=== PATIENT | male | born 1995 | race Two or more races ===

== ENCOUNTER 2024-08-30 00:53 | Emergency (ER) | payer MEDICAID, SELFPAY ==
[2024-08-30 00:55] VITALS: BMI 32.8
[2024-08-30 01:26] VITALS: BP 141/90; PULSE 84; RESP 18; TEMP 36.7; O2SAT 96
--- NOTE | 2024-08-30 01:33 | XR_ITS ---
Examination: Tibia-Fibula, right , 2 views Technique: Tibia-fibula AP lateral 2 views Date and time of exam: August 30, 2024 0144 hours INDICATIONS: Patient slipped and fell today with large laceration lower leg FINDINGS: Prior anterior cruciate ligament repair No fracture No cortical bone destruction No opaque foreign body IMPRESSION: No fracture No opaque foreign body
--- NOTE | 2024-08-30 01:33 | PD.EDRME ---
Rapid Medical Screening Exam RME Arrival date/time: 08/30/24 00:53 29-year-old male presents emergency department complaining of laceration to right villanueva while getting off of his semitruck. Patient reports is up-to-date with tetanus vaccine. Chief Complaint: Extremity Injury, Lower Time Seen by Provider: 08/30/24 01:05 Vital signs: Vital Signs Temperature 98.1 F 08/30/24 01:26 Pulse Rate 84 08/30/24 01:26 Respiratory Rate 18 08/30/24 01:26 Blood Pressure 141/90 H 08/30/24 01:26 Pulse Oximetry (%) 96 08/30/24 01:26 Oxygen Delivery Method Room Air 08/30/24 01:26 Vital signs reviewed by provider: Yes
[2024-08-30] MEDS: LIDOCAINE HCL 1% 20 ML VIAL INFL (01:41)
[2024-08-30] MEDS: HYDROcodone/APAP 5/325 TABLET 1 TAB PO (02:40)
--- NOTE | 2024-08-30 03:07 | EDNOTE_ITS ---
Lower Extremity Injury RME/HPI General Chief Complaint: Extremity Injury, Lower Stated Complaint: LARGE LAC TO RIGHT LOWER EXTREMITY Time Seen by Provider: 08/30/24 01:05 Source: patient Arrival date/time: 08/30/24 00:53 29-year-old male presents emergency department complaining of laceration to right villanueva while getting off of his semitruck. Patient reports is up-to-date with tetanus vaccine. Patient denies any injury to head or neck or LOC. Patient reports as he got off his truck his right leg struck against step side causing laceration. Mode of arrival: wheelchair Limitations: physical limitation RME / HPI RME / HPI Narrative: 08/30/24 00:53 29-year-old male presents emergency department complaining of laceration to right villanueva while getting off of his semitruck. Patient reports is up-to-date with tetanus vaccine. Related Data Previous Rx's ?Medication ?Instructions ?Recorded cephalexin 500 mg capsule 500 mg PO BID 5 days #10 cap s 08/30/24 hydrocodone 5 mg-acetaminophen 325 1 tab PO BID PRN pa in #7 tabs 08/30/24 mg tablet Allergies Allergy/AdvReac Type Severity Reaction Status Date / Time No Known Allergies Allergy Verified 08/30/24 00:58 Review of Systems Review of Systems Systems Reviewed: All systems reviewed, normal except as documented Constitutional Constitutional: Reports system reviewed and no additional complaints, except as documented, Denies body ache(s), Denies chills and Denies fever(s) Eyes Eyes: Reports system reviewed and no additional complaints, except as documented and Denies change in vision ENT Ears, Nose, Mouth, and Throat: Reports system reviewed and no additional complaints, except as documented, Denies disequilibrium, Denies dizziness, Denies sore throat and Denies vertigo Cardiovascular Cardiovascular: Reports system reviewed and no additional complaints, except as documented, Denies chest pain and Denies dyspnea Respiratory Respiratory: Reports system reviewed and no additional complaints, except as documented, Denies chest congestion, Denies cough and Denies dyspnea Gastrointestinal Gastrointestinal: Reports system reviewed and no additional complaints, except as documented, Denies abdominal pain, Denies nausea and Denies vomiting Musculoskeletal Musculoskeletal: Reports system reviewed and no additional complaints, except as documented, Denies abnormal gait and Denies arthralgias Integumentary/Breasts Skin/Breast: Reports system reviewed and no additional complaints, except as documented, Denies erythema, Denies rash and Reports wounds Neurologic Neurologic: Reports system reviewed and no additional complaints, except as documented, Denies abnormal gait, Denies disequilibrium, Denies dizziness and Denies vertigo Past Medical History Past Medical History NEUROLOGIC: Negative Neurological Disorders or Seizures CARDIAC: Negative Cardiac Disorders or Congestive Heart Failure RESPIRATORY: Negative Chronic Obstructive Pulmonary Disease (COPD) GASTROINTESTINAL: Negative Gastrointestinal Disorders GENITOURINARY: Negative Genitourinary Disorders or Renal Disease MUSCULOSKELETAL: Negative Musculoskeletal Disorders ENDOCRINE: Negative Endocrine Disorders, Diabetes Mellitus Type 1 or Diabetes Mellitus Type 2 HEMATOLOGIC: Negative Blood Disorders OTHER HISTORY: Negative Blood Transfusions, Blood Transfusion Reaction or Anesthesia Reactions Surgical History SURGICAL: Positive Joint Replacement (right knee surg.) Social History SMOKING STATUS: Never smoker ED Exam General Limitations: Present physical limitation General appearance: Present alert and in no apparent distress Head Head exam: Present atraumatic Eye Eye exam: Present normal appearance, PERRL and EOMI ENT ENT exam: Present normal exam, normal oropharynx and mucous membranes moist Neck Neck exam: Present normal inspection, full ROM and trachea midline Chest Chest inspection: Present normal inspection and symmetric chest wall rise Respiratory Respiratory exam: Present normal lung sounds bilaterally Cardiovascular Cardiovascular exam: Present regular rate, normal rhythm and normal heart sounds Abdominal Exam Abdominal exam: Present soft and normal bowel sounds Extremities Exam Extremities exam: Present normal inspection and full ROM Back Exam Back exam: Present normal inspection and full ROM Neurological Exam Neurological exam: Present alert, oriented X3 and CN II-XII intact Psychiatric Psychiatric exam: Present normal affect and normal mood Skin Skin exam: Present warm, dry and intact Expanded Skin Exam Body image: 2 1. 6 cm laceration no tendon involvement Course Quality Measures none Orders Category Date Time Status Set Up Suture Tray STAT Care 08/30/24 01:34 Active Wound Care [Wound Care] NOW Care 08/30/24 01:34 Active XR tibia fibula RT 2V Stat Exams 08/30/24 01:33 Taken HYDROcodone*/APAP 5/325 [[place] 5/325] Med 08/30/24 02:09 Discontinued 1 tab PO X1 ONE Lidocaine 1% 20 ml [Xylocaine 1% 20 ML] Med 08/30/24 01:34 Discontinued 20 ml INFL X1 ONE Vital Signs Vital signs: Vital Signs Temperature 98.1 F 08/30/24 01:26 Pulse Rate 84 08/30/24 01:26 Respiratory Rate 18 08/30/24 01:26 Blood Pressure 141/90 H 08/30/24 01:26 Pulse Oximetry (%) 96 08/30/24 01:26 Oxygen Delivery Method Room Air 08/30/24 01:26 96% room air within normal limits Procedures -ED Laceration Laceration 1: Site: lower extremity Side (If applicable): right Size (cm): 6 Description: linear Depth: simple, single layer Local Anesthetic: lidocaine 1% Amount of anesthesia used (mL): 4 Pre-repair: wound explored and irrigated extensively Skin layer closed with: nylon Size (cm): 3-0 Number of sutures: 12 Technique: simple, interrupted Extremity Injury, Lower MDM Narrative MDM Narrative:: 29-year-old male presents emergency department complaining of laceration to right villanueva while getting off of his semitruck. Patient reports is up-to-date with tetanus vaccine. Patient denies any injury to head or neck or LOC. Patient reports as he got off his truck his right leg struck against step side causing laceration. X-ray obtained and based on my interpretation no acute fracture or foreign body. 6 cm laceration with partial avulsion of skin irrigated with copious amounts of normal saline. Verbal consent obtained and 1% lidocaine was used for local anesthetic and 12 simple interrupted sutures using 3-0 Ethilon was used to approximate wound. Patient tolerated well. Patient instructed on signs and symptoms of infection and to return to emergency department primary care provider's office in 10 days for suture removal. Affected extremity is neurovascularly intact. Patient data External records reviewed:: [facility] previous records Clinical information provided by:: patient Social determinants that could affect healthcare access:: none Patient has the following chronic illnesses:: See chart How is presenting disease/condition affected by chronic disease/condition?: u neffected by Evaluation data The following diagnostics were reviewed and interpreted by me:: radiology exam(s) Lab and/or radiology exams considered but not ordered:: Ordered Interpretation Summary: Interpreted by me Medications / Prescriptions Medications or Prescriptions considered but not ordered:: Ordered Medication administrations:: Medication Administration History Discontinued Medications Hydrocodone Bitart/Acetaminophen (Hydrocodone/Apap 5/325 Tablet) 1 tab PO X1 ONE Stop: 08/30/24 02:10 Last Admin: 08/30/24 02:40 Dose: 1 tab Documented By: SF Lidocaine HCl (Lidocaine Hcl 1% 20 Ml Vial) 20 ml INFL X1 ONE Stop: 08/30/24 01:35 Last Admin: 08/30/24 01:41 Dose: 20 ml Documented By: MADELINE Given Consultations Consultation(s) initiated? (list below): No Diagnosis Extremity Injury, Lower Differential Diagnosis: other (Tibia fracture, fibula fracture) Most likely diagnosis given after review of the tests above:: Laceration of leg right Admission Indicated Admission indicated?: not indicated Admission Request Was there a request for admission?: No Disposition Plan Disposition Plan: Discharge Discharge Attestation Discharge Attestation: The patient and all family members were given an opportunity to ask questions and understood the discharge instructions. Discharge instructions specifically effects, indications for sooner follow up or return to the emergency department, and the expected course of current diagnosis. Patient condition: Stable Discharge Plan Plan Patient Disposition: HOME (Self Care) Disposition Comment: Stable Prescriptions/Referrals Prescriptions/Med Rec: New cephalexin 500 mg capsule 500 mg PO BID 5 Days Qty: 10 0RF hydrocodone-acetaminophen 5-325 mg tablet 1 tab PO BID MDD 2 tabs PRN (Reason: pain) Qty: 7 0RF Problem List Clinical Impression: Laceration of lower leg, right Patient/Caregiver Discharge Instructions Discharge Activity: activity as tolerated Education Materials: ED Laceration: All Closures Additional Instructions: Keep dressing on for the first 24 hours due to bleeding. After 24 hours may wash with warm water and soap keep open to air pat dry and monitor for signs of infection. In 10 days return to emergency department or primary care provider's office for suture removal. Return to emergency department for any signs of infection worsening symptoms or as needed. Print Language: Persian Stand Alone Forms: Brenda Award Info., Patient Portal Info Letter PA/HOME HEALTH REGISTERED NURSE Supervising Physician KRISTEN/RADHA Supervising Physician: Dr. Aguirre
== END 2024-08-30 03:33 | disposition home or self-care (01) ==
LOC: SERX 03:37
PROVIDERS: Emergency Provider Emergency Medicine
DX: S81.812A Laceration without foreign body, left lower leg, initial encounter (principal); W22.8XXA Striking against or struck by other objects, initial encounter
CPT/HCPCS: 12002; 73590; 99283; J3490; A9270

== ENCOUNTER → 2025-07-09 | Outpatient (CLI) | payer MEDICAID, SELFPAY ==
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
== END | disposition home or self-care (01) ==
LOC: SDIM 12:25
DX: S39.92XA Unspecified injury of lower back, initial encounter (principal); S29.9XXA Unspecified injury of thorax, initial encounter; S19.9XXA Unspecified injury of neck, initial encounter; V89.2XXA Person injured in unspecified motor-vehicle accident, traffic, initial encounter
CPT/HCPCS: 72050; 72072; 72110

== ENCOUNTER → 2025-07-16 | Outpatient (CLI) | payer MEDICAID, SELFPAY ==
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
== END | disposition home or self-care (01) ==
LOC: SCAT 09:47
DX: S29.9XXA Unspecified injury of thorax, initial encounter (principal); V89.2XXA Person injured in unspecified motor-vehicle accident, traffic, initial encounter
CPT/HCPCS: 74160; A4649; Q9967